=== PATIENT | female | born 1985 | race Caucasian/White ===

== ENCOUNTER → 2017-05-19 | Outpatient (CLI) | payer BC ==
[2017-05-19 18:53] LABS: URINE APPEARANCE CLEAR (CLEAR); URINE BILIRUBIN NEG (NEG); URINE COLOR DK YELLOW; URINE NITRITE NEG (NEG); URINE PH 6.5 (4.5-7.5); URINE SPECIFIC GRAVITY 1.027 (1.000-1.030); UROBILINOGEN POS (NEG)
[2017-05-19 18:57] LABS: MANUAL MICROSCOPIC REQUIRED? NO; REVIEW REQ? NO
== END | disposition home or self-care (01) ==
LOC: C.LABSPEC 17:23
PROVIDERS: ATTEND Obstetrics & Gynecology
DX: O09.299 Supervision of pregnancy with other poor reproductive or obstetric history, unspecified trimester (principal)

== ENCOUNTER → 2017-05-27 | Outpatient (CLI) | payer BC ==
[2017-05-27 17:20] LABS: HEMATOCRIT 38.6 % (37-47); MEAN CELL VOLUME 95.3 fL (80-100); MEAN CORPUSCULAR HEMOGLOBIN 31.9 pg (25-34); MEAN CORPUSCULAR HGB CONC 33.4 g/dl (32-36); MEAN PLATELET VOLUME 9.3 fL (7.4-10.4); PLATELET COUNT 355 K/uL (130-400); RED BLOOD COUNT 4.05 M/uL (4.2-5.4); WHITE BLOOD COUNT 7.84 K/uL (4.8-10.8)
[2017-05-27 18:43] LABS: BASO % 0.1 %; BASO ABS # 0.01 K/uL (0-0.2); COMPLETE YES; EOS % 0.9 %; IG% 0.3 %; LYMPH % 19.4 %; LYMPH ABS # 1.52 K/uL (1.2-3.4); MONO % 10.3 %
== END | disposition home or self-care (01) ==
LOC: C.LAB1850 16:18
PROVIDERS: ATTEND Obstetrics & Gynecology
DX: O09.299 Supervision of pregnancy with other poor reproductive or obstetric history, unspecified trimester (principal); Z3A.00 Weeks of gestation of pregnancy not specified

== ENCOUNTER → 2017-05-27 | Outpatient (CLI) | payer BC ==
[2017-05-29 16:23] LABS: CHLAMYDIA TRACH RNA*** NOT DETECTED (NOT DETECTED); GC (NEIS GONORRHOEAE)RNA** NOT DETECTED (NOT DETECTED)
== END | disposition home or self-care (01) ==
LOC: C.LABSPEC 17:41
PROVIDERS: ATTEND Obstetrics & Gynecology
DX: O09.299 Supervision of pregnancy with other poor reproductive or obstetric history, unspecified trimester (principal); Z3A.00 Weeks of gestation of pregnancy not specified

== ENCOUNTER → 2017-07-21 | Outpatient (CLI) | payer BC ==
[2017-07-23 16:30] LABS: AFP CONCENTRATION 61.2 NG/ML; AFP MULTIPLE OF MEDIAN 1.67; AFPTS GESTATIONAL AGE 15.7 WEEKS; AFPTS INSULIN DEP DIABETIC? NO; AFPTS MATERNAL WT 119 LBS; ALPHA-FETOPROTEIN RACE CAUCASIAN=W; ESTRIOL MULTIPLE OF MEDIAN 0.12; HISTORY OF NTD NO; INHIBIN A 178 PG/ML; REPEAT SAMPLE? NO; hCG MULTIPLE OF MEDIAN 0.75
== END | disposition home or self-care (01) ==
LOC: C.LAB1850 16:07
PROVIDERS: ATTEND Obstetrics & Gynecology
DX: Z34.82 Encounter for supervision of other normal pregnancy, second trimester (principal); Z3A.00 Weeks of gestation of pregnancy not specified

== ENCOUNTER → 2017-08-05 | Outpatient (CLI) | payer BC | END | disposition home or self-care (01) | LOC: C.LAB1850 07:45 | PROVIDERS: ATTEND Obstetrics & Gynecology | DX: Z34.82 Encounter for supervision of other normal pregnancy, second trimester (principal) ==

== ENCOUNTER → 2017-10-20 | Outpatient (CLI) | payer BC ==
[2017-10-20 18:17] LABS: URINE APPEARANCE CLEAR (CLEAR); URINE BILIRUBIN NEG (NEG); URINE COLOR YELLOW; URINE EPITHELIAL CELL AUTO 20-30 /lpf (0-5); URINE NITRITE NEG (NEG); URINE SPECIFIC GRAVITY 1.017 (1.000-1.030); UROBILINOGEN NEG (NEG)
[2017-10-20 18:19] LABS: MANUAL MICROSCOPIC REQUIRED? NO; REVIEW REQ? NO
== END | disposition home or self-care (01) ==
LOC: C.LABSPEC 17:36
PROVIDERS: ATTEND Obstetrics & Gynecology
DX: Z34.83 Encounter for supervision of other normal pregnancy, third trimester (principal); Z3A.00 Weeks of gestation of pregnancy not specified

== ENCOUNTER → 2017-10-28 | Outpatient (CLI) | payer BC | END | disposition home or self-care (01) | LOC: C.LAB1850 09:48 | PROVIDERS: ATTEND Obstetrics & Gynecology | DX: Z34.83 Encounter for supervision of other normal pregnancy, third trimester (principal) ==

== ENCOUNTER → 2017-12-12 | Outpatient (CLI) | payer BC | END | disposition home or self-care (01) | LOC: C.LABSPEC 17:29 | PROVIDERS: ATTEND Obstetrics & Gynecology | DX: Z34.83 Encounter for supervision of other normal pregnancy, third trimester (principal) ==

== ENCOUNTER 2018-01-07 03:33 | Inpatient (IN) | payer BC ==
[~2018-01-07] VITALS: Ht 165.1 cm; Wt 61.2 kg
[2018-01-08] MEDS ORDERED: LACTATED RINGER'S 1000ML 500 ML IV PRN (14:47)
[2018-01-08] MEDS ORDERED: LACTATED RINGER'S 1000ML 1,000 ML IV PRN (14:47)
[2018-01-08] MEDS ORDERED: MISOPROSTOL 25 MCG TAB PV ONE (15:00)
[2018-01-08] MEDS ORDERED: OXYTOCIN 30 UNITS/500ML NSS IV PRN (15:00)
[2018-01-08 15:16] LABS: HEMOGLOBIN 12.5 g/dL (12.0-16.0); MEAN CELL VOLUME 94.7 fL (80-100); MEAN CORPUSCULAR HEMOGLOBIN 32.9 pg (25-34); MEAN CORPUSCULAR HGB CONC 34.7 g/dl (32-36); PLATELET COUNT 158 K/uL (130-400); RED CELL DISTRIBUTION WIDTH CV 12.9 % (11.5-14.5); RED CELL DISTRIBUTION WIDTH SD 44.2 fL (36.4-46.3); WHITE BLOOD COUNT 7.07 K/uL (4.8-10.8)
[2018-01-08] MEDS ORDERED: OMEG10007 PO (15:17)
[2018-01-08] MEDS ORDERED: PRENTAB26 PO (15:17)
[2018-01-08] MEDS ORDERED: PHYT100T (15:17)
[2018-01-08 15:24] LABS: INR 0.9 (0.9-1.1); PTT PATIENT 25.6 SECONDS (21.0-31.0)
[2018-01-08 15:31] VITALS: Ht 165.1 cm; Wt 61.2 kg
[2018-01-08 15:38] LABS: ALBUMIN 2.8 gm/dl (3.4-5.0); CREATININE 0.55 mg/dl (0.60-1.20); TOTAL PROTEIN 6.6 gm/dl (6.4-8.2); URIC ACID 2.9 mg/dl (2.6-7.2)
[2018-01-08] MEDS: LACTATED RINGER'S 1000ML 1,000 ML IV SCH ×2 (15:59→16:59)
[2018-01-09] VITALS (14 sets, daily range): BP systolic 104–139; BP diastolic 67–83; PULSE 65–78; TEMP 36.3–37.2; O2SAT 96–98
[2018-01-09] MEDS: LACTATED RINGER'S 1000ML 1,000 ML IV SCH ×2 (00:09→04:57)
[2018-01-09] MEDS ORDERED: BUPIVACAINE 0.25% 30 ML VIAL ONE (04:14)
[2018-01-09] MEDS ORDERED: FENTANYL 2MCG/ML ROPIV 1.25MG/ML 100ML BAG EPI ONE (04:15)
[2018-01-09] MEDS ORDERED: FENTANYL CITRATE INJ 50 MCG/1 ML 2 ML VIAL ONE ×2 (04:15→09:29)
[2018-01-09] MEDS ORDERED: EpHEDrine SULFATE INJ 50 MG/ML AMP ONE (04:15)
[2018-01-09] MEDS ORDERED: LACTATED RINGER'S 1000ML 500 ML IV PRN (04:59)
[2018-01-09] MEDS ORDERED: NALOXONE HCL INJ 1 MG in SODIUM CHLORIDE 0.9% 1000ML 1,000 ML IV PRN (04:59)
[2018-01-09] MEDS ORDERED: EpHEDrine SULFATE INJ 50 MG/ML AMP IV PRN (05:00)
[2018-01-09] MEDS ORDERED: FENTANYL 2MCG/ML ROPIV 1.25MG/ML 100ML BAG EPI PRN (05:00)
[2018-01-09] MEDS ORDERED: ONDANSETRON INJ 2 MG/ML 2 ML VIAL IV PRN (05:00)
[2018-01-09] MEDS ORDERED: NALOXONE HCL INJ 0.4 MG/1 ML VIAL/CARP IV PRN (05:00)
[2018-01-09] MEDS ORDERED: NALBUPHINE HCL INJ 10 MG/ML AMP IV PRN (05:00)
[2018-01-09] MEDS ORDERED: DiphenhydrAMINE HCL 50 MG/ML VIAL IV PRN (05:00)
[2018-01-09] MEDS ORDERED: CEFAZOLIN IV 2,000 MG in SYRINGE 0 ML IV SCH (06:00)
[2018-01-09] MEDS ORDERED: LACTATED RINGER'S 1000ML 1,000 ML IV SCH (08:23)
[2018-01-09] MEDS ORDERED: CITRIC ACID/SODIUM CITRATE 15 ML UDC PO ONE (08:30)
[2018-01-09] MEDS ORDERED: OXYTOCIN INJ 10 UNITS/ML VIAL ONE ×2 (09:26→10:20)
[2018-01-09] MEDS ORDERED: PHENYLEPHRINE 100MCG/ML 5ML SYR ONE (09:30)
[2018-01-09] MEDS ORDERED: MoRPHine SULFATE PF 1 MG/ML 10 ML AMP/VIAL ONE (09:30)
[2018-01-09] MEDS ORDERED: ONDANSETRON INJ 2 MG/ML 2 ML VIAL ONE (10:16)
[2018-01-09] MEDS ORDERED: DEXAMETHASONE SOD INJ 4 MG/ML VIAL ONE (10:22)
--- NOTE | 2018-01-09 10:51 | Anesthesia Procedure Note ---
Anesthesia Epidural Removal Nt Date & Time Jan 09, 2018 at 10:51 Vital Signs Pain Intensity: 0.0 Notes Mental Status: alert / awake / arousable, participated in evaluation Nausea / Vomiting: adequately controlled Pain: adequately controlled Airway Patency, RR, SpO2: stable & adequate BP & HR: stable & adequate Hydration State: stable & adequate Neuraxial Anesthesia: was administered Anesthetic Complications: no major complications apparent, pt satisfied with anesthetic care Epidural: removed without complications, with tip intact
--- NOTE | 2018-01-09 10:56 | [facility] Post Operative Brief Note ---
Immediate Operative Summary Operative Date Jan 09, 2018. Pre-Operative Diagnosis 1) Nonreassuring heart rate 2) oligohydramnios Post-Operative Diagnosis SAME Procedure(s) Performed Primary low cervical tranverse caesarean section Surgeon Dr. Pennington Dry Cure Worker Surgeon(s) Catie Abernathy, MARIANA Estimated Blood Loss 800 ml Findings See Below (meconium staining of baby and placenta) viable male, Apgars 3,5,& 7. weight 5lbs 9 ozs, gasses pending, Specimens Placenta-exam arterial/venous corg gases cord blood Drains Grey to gravity Anesthesia Type L&D Only EPID Exist Complication(s) none Disposition Accompanied Pt To Recover: yes Disposition: L&D
[2018-01-09] MEDS ORDERED: MoRPHine SULFATE PF 1 MG/ML 10 ML AMP/VIAL EPI PRN (11:00)
[2018-01-09] MEDS ORDERED: SUPERCREAM 0.870 % 15GM JAR EXT PRN (11:00)
[2018-01-09] MEDS ORDERED: NO NARCOTICS OR SEDATIVES SCH (11:00)
[2018-01-09] MEDS ORDERED: CONTINUE MEDICATION ONE (11:00)
[2018-01-09] MEDS ORDERED: BENZOCAINE 20% AER SPR 82.5 GM CAN EXT PRN (11:00)
[2018-01-09] MEDS ORDERED: HYDROCORTISONE ACETATE 25 MG SUPP PR PRN (11:00)
[2018-01-09] MEDS ORDERED: LANOLIN OINT EXT PRN (11:00)
[2018-01-09] MEDS ORDERED: DIPHTHERIA/TETANUS/PERTUSSIS 0.5 ML SYR/VIAL IM. ONE (11:00)
[2018-01-09] MEDS ORDERED: LIDOCAINE/EPINEPHRINE 2% 1:200,000 20 ML SDV ONE (11:27)
--- NOTE | 2018-01-09 12:10 | OPERATIVE REPORT ---
DATE OF OPERATION: 01/09/2018 PREOPERATIVE DIAGNOSES: 1. Term . 2. Oligohydramnios. 3. Nonreassuring heart rate tracing. POSTOPERATIVE DIAGNOSIS: Same. PROCEDURE PERFORMED: Primary low cervical transverse section. SURGEON: Dr. Pennington. ANESTHESIA: Epidural. FINDINGS: Viable male infant with Apgars of 3, 5 and 7 and a weight of 5 pounds 9 ounces. Arterial and venous cord gases are pending. Meconium staining of the baby and the placenta. Normal appearing tubes and ovaries bilaterally. PROCEDURE IN DETAIL: The patient was taken to the operating room and after epidural anesthesia was placed in supine position and draped and prepped in usual fashion. Pfannenstiel type incision was made. Underlying subcutaneous tissue was dissected down to the ventral abdominal fascia, which was nicked and opened in a horizontal manner. Preperitoneal fascia was dissected away until the peritoneal cavity was entered and opened in a vertical manner. Bladder blade was placed. The peritoneum overlying the uterus was elevated, opened in a semi-lunar fashion, the inferior margin of which was taken down creating the bladder flap. The uterus was entered sharply and extended in a semilunar fashion manually. Viable male infant was delivered. Cord was clamped and cut and the baby was passed off to pediatrics who was in attendance for the delivery. Cord gases, cord blood samples obtained. Placenta delivered manually and the uterus was exteriorized. The uterine cavity was wiped clean of any residual blood tissue and/or clot. Uterine incision was then closed with 2 layers of 4-0 Vicryl, the first a running locking stitch, the second an imbricating stitch. Hemostasis was achieved and the uterus was returned to the pelvic cavity. The pericolic gutters were cleared bilaterally of any blood tissue and/or clot. The pelvis was thoroughly irrigated with 1000 mL of warm saline. The uterine incision was inspected for hemostasis again which was present. Sponge and needle count was correct. The rectus muscle was then plicated in the midline with a running 2-0 Vicryl stitch. The fascia was closed laterally with a running 0 Vicryl suture. The subcutaneous tissue was irrigated with warm saline and the skin incision was closed with 4-0 Monocryl subcuticular suture. Sterile dressing was applied. The patient was taken to the recovery room in satisfactory condition. I attest to the content of the Intraoperative Record and any orders documented therein. Any exception s are noted below.
--- NOTE | 2018-01-09 12:42 | Anesthesiology Progress Note ---
Anesthesia Post Op Note Date & Time Jan 09, 2018 at 12:41 Vital Signs Pain Intensity: 0.0 Notes Mental Status: alert / awake / arousable, participated in evaluation Pt Amnestic to Procedure: No Nausea / Vomiting: adequately controlled Pain: adequately controlled Airway Patency, RR, SpO2: stable & adequate BP & HR: stable & adequate Hydration State: stable & adequate Neuraxial Anesthesia: was administered, sensory block is resolving Anesthetic Complications: no major complications apparent pt anesthetic level L3
[2018-01-09] MEDS: KETOROLAC TROMETHAMINE 30 MG/ML VIAL IV. PRN (12:52)
[2018-01-09] MEDS: OXYTOCIN INJ 20 UNITS in LACTATED RINGER'S 1000ML 1,000 ML IV SCH ×2 (13:25→21:21)
[2018-01-10 00:51] VITALS: O2SAT 98
[2018-01-10 02:30] VITALS: O2SAT 97
[2018-01-10] MEDS: KETOROLAC TROMETHAMINE 30 MG/ML VIAL IV. PRN (03:14)
[2018-01-10 04:30] VITALS: O2SAT 94
[2018-01-10] MEDS ORDERED: KETOROLAC TROMETHAMINE 30 MG/ML VIAL IV. PRN (05:30)
[2018-01-10] MEDS ORDERED: DC INTRASPINAL MORPHINE ONE (05:30)
[2018-01-10] MEDS ORDERED: DiphenhydrAMINE HCL 50 MG/ML VIAL IV PRN (05:30)
[2018-01-10] MEDS ORDERED: NURSING VERBAL MED ORDER ONE (05:30)
[2018-01-10] MEDS ORDERED: ONDANSETRON INJ 2 MG/ML 2 ML VIAL IV PRN (05:30)
[2018-01-10] MEDS ORDERED: OXYCODONE/ACETAMINOPHEN 5-325 TAB PO PRN (05:30)
[2018-01-10] MEDS ORDERED: LACTATED RINGER'S 1000ML 500 ML IV ONE (06:45)
[2018-01-10 07:08] LABS: BASO % 0.1 %; BASO ABS # 0.01 K/uL (0-0.2); EOS % 0.6 %; EOS ABS # 0.07 K/uL (0-0.5); HEMATOCRIT 29.9 % (37-47); HEMOGLOBIN 10.4 g/dL (12.0-16.0); IG# 0.03 K/uL (0.00-0.02); LYMPH % 14.9 %; LYMPH ABS # 1.81 K/uL (1.2-3.4); MEAN CELL VOLUME 94.6 fL (80-100); MEAN CORPUSCULAR HEMOGLOBIN 32.9 pg (25-34); MEAN CORPUSCULAR HGB CONC 34.8 g/dl (32-36); MEAN PLATELET VOLUME 9.9 fL (7.4-10.4); MONO % 5.8 %; NEUT % 78.4 %; NEUT ABS # 9.49 K/uL (1.4-6.5); PLATELET COUNT 139 K/uL (130-400); RED CELL DISTRIBUTION WIDTH CV 12.8 % (11.5-14.5); RED CELL DISTRIBUTION WIDTH SD 43.8 fL (36.4-46.3); WHITE BLOOD COUNT 12.11 K/uL (4.8-10.8)
--- NOTE | 2018-01-10 07:18 | Progress Note ---
Subjective Jan 10, 2018. Subjective conversation w/ patient, physical exam Ambulation: ambulating normally Voiding: sanford catheter in place Feeding Type: Breast Feeding Objective Vital Signs Date Time Temp Pulse Resp B/P (MAP) Pulse Ox O2 Delivery O2 Flow Rate FiO2 01/10/18 04:30 18 94 01/10/18 02:30 18 97 01/10/18 00:51 18 98 01/09/18 23:46 18 97 01/09/18 23:44 97 Room Air 01/09/18 23:42 37.2 71 18 104/67 (79) 97 Room Air 01/09/18 23:00 18 96 01/09/18 19:10 37.1 65 16 120/76 (91) 97 Room Air 01/09/18 19:10 16 97 01/09/18 18:10 16 97 01/09/18 17:10 16 96 01/09/18 16:10 97 Room Air 01/09/18 16:10 16 97 01/09/18 16:10 36.9 72 16 127/80 (96) 97 Room Air 01/09/18 15:10 36.8 78 16 116/77 (90) 97 Room Air 01/09/18 15:10 16 97 01/09/18 14:05 36.3 66 16 132/83 (99) 97 Room Air 01/09/18 14:05 16 97 01/09/18 13:35 37.0 68 18 129/81 (97) 97 Room Air 01/09/18 13:17 18 98 01/09/18 13:12 98 Room Air 01/09/18 13:05 37.0 68 18 139/82 (101) 98 Room Air Physical Exam General Appearance: WELL-APPEARING, NO APPARENT DISTRESS Respiratory/Chest: lungs clear Cardiovascular: regular rate, rhythm Fundus: Firm Incision Description: Clean, Dry & Intact (dressing intact) Extremities: no calf tenderness Laboratory Results Last 24 Hours Test 01/10/18 06:38 White Blood Count 12.11 K/uL Red Blood Count 3.16 M/uL Hemoglobin 10.4 g/dL Hematocrit 29.9 % Mean Corpuscular Volume 94.6 fL Mean Corpuscular Hemoglobin 32.9 pg Mean Corpuscular Hemoglobin Concent 34.8 g/dl Platelet Count 139 K/uL Mean Platelet Volume 9.9 fL Neutrophils (%) (Auto) 78.4 % Lymphocytes (%) (Auto) 14.9 % Monocytes (%) (Auto) 5.8 % Eosinophils (%) (Auto) 0.6 % Basophils (%) (Auto) 0.1 % Neutrophils # (Auto) 9.49 K/uL Lymphocytes # (Auto) 1.81 K/uL Monocytes # (Auto) 0.70 K/uL Eosinophils # (Auto) 0.07 K/uL Basophils # (Auto) 0.01 K/uL RDW Standard Deviation 43.8 fL RDW Coefficient of Variation 12.8 % Immature Granulocyte % (Auto) 0.2 % Immature Granulocyte # (Auto) 0.03 K/uL Assessment and Plan Post-Op Day#: 1 Continue Routine Care: - discussed surgery and indication for surgery - begin ambulation - routine post C/S care - doing well
[2018-01-10 07:35] VITALS: BP 107/68; PULSE 81; TEMP 37
[2018-01-10] MEDS: PRENATAL VITAMIN TAB PO SCH (08:19)
[2018-01-10] MEDS: FERROUS SULFATE 325 MG TAB PO SCH (08:19)
[2018-01-10] MEDS: IBUPROFEN 600 MG TAB PO PRN ×3 (08:19→19:13)
[2018-01-10] MEDS: OXYCODONE/ACETAMINOPHEN 5-325 TAB PO PRN ×3 (08:20→19:14)
[2018-01-10 11:15] VITALS: BP 113/68; PULSE 74; TEMP 37.1
[2018-01-10 15:45] VITALS: BP 114/81; PULSE 77; TEMP 36.8
[2018-01-10] MEDS: MAGNESIUM HYDROXIDE SUSP 30 ML UDC PO SCH (22:20)
[2018-01-10] MEDS: SENNA 8.6 MG TAB PO SCH (22:20)
[2018-01-11] MEDS: IBUPROFEN 600 MG TAB PO PRN ×5 (00:19→21:48)
[2018-01-11] MEDS: OXYCODONE/ACETAMINOPHEN 5-325 TAB PO PRN ×5 (00:20→21:48)
[2018-01-11 01:00] VITALS: BP 106/64; PULSE 69; TEMP 36.6; O2SAT 98
[2018-01-11 06:59] LABS: HEMATOCRIT 28.5 % (37-47); HEMOGLOBIN 9.8 g/dL (12.0-16.0)
--- NOTE | 2018-01-11 08:12 | Progress Note ---
Subjective Jan 11, 2018. Subjective conversation w/ patient, physical exam, chart review Ambulation: ambulating normally Voiding: no incontinence Diet Tolerance: Regular Diet Lochia: Small Objective Vital Signs Date Time Temp Pulse Resp B/P (MAP) Pulse Ox O2 Delivery O2 Flow Rate FiO2 01/11/18 01:00 98 Room Air 01/11/18 01:00 36.6 69 18 106/64 (78) 98 Room Air 01/10/18 15:45 36.8 77 18 114/81 (92) Room Air 01/10/18 15:45 Room Air 01/10/18 11:15 37.1 74 18 113/68 (83) Room Air Physical Exam General Appearance: WELL-APPEARING Abdomen: non tender Fundus: Firm Incision Description: Clean, Dry & Intact Extremities: no calf tenderness Laboratory Results Last 24 Hours Test 01/11/18 06:22 Hemoglobin 9.8 g/dL Hematocrit 28.5 % Assessment and Plan Post-Op Day#: 2 Continue Routine Care: Ambulating well tolerating by mouth pain medications may wish discharged later today
[2018-01-11] MEDS ORDERED: OXYC-57 PO (08:13)
[2018-01-11] MEDS ORDERED: MTR600X PO (08:13)
--- NOTE | 2018-01-11 08:14 | Discharge Instructions ---
Discharge Instructions Date of Service Jan 11, 2018. Admission Reason for Admission: IUP Discharge Discharge Diagnosis / Problem: c/s Discharge Goals Goal(s): Routine recovery after Activity Recommendations Activity Limitations: per Instructions/Follow-up section . Instructions / Follow-Up Instructions / Follow-Up ACTIVITY RECOMMENDATIONS: * Gradual return to full activity over the next 2-3 weeks. * No lifting - nothing heavier than baby over the next 2-3 weeks. * Do not engage in vigorous exercise, sexual activity or sports until cleared by your physician. * Do not drive or operate any motorized equipment until cleared by your physician. * You may shower/bathe daily. MEDICATIONS: For discomfort or pain, you may use Acetaminophen (Tylenol), Ibuprofen (Advil), or Naproxen (Aleve) following the package directions. For constipation you may use Colace following the package directions. BREAST CARE: If you are not breast feeding: * Wear a supportive bra 24 hours a day for one to two weeks. * Avoid stimulating your breasts and nipples as much as possible during the first few weeks after delivery. * When taking a shower, have the warm water hit your back, not breasts. * When your breasts feel full, apply ice packs. Usually three to four times a day helps ease the discomfort. * Take a mild pain medication (Tylenol / Motrin) when you are uncomfortable. If breast feeding: * Use breast milk to lubricate nipples. Lansinoh cream may be used for sore nipples. You do not need to remove cream prior to breast feeding. If using a different brand of cream, check the label for directions regarding removal of cream prior to nursing. * Wear a supportive bra. * If having problems with breasts or breast feeding, call a senior research consultant or your health care provider. SPECIAL CARE INSTRUCTIONS: When you are discharged from the hospital, it is important for you to follow the instructions listed below: * During the first week at home, you should be able to care for yourself and your baby. In addition, the usual light household activities are encouraged. * Limit your activities to the way you feel. Do not try to clean the house or move furniture. Be sensible. * If you actively engage in sports and have done so up until the time of your delivery, you may resume these activities as soon as you feel able. This may take up to one month or even longer. Use good judgment. * Continue to take your vitamins for at least six weeks after the of your baby. * Your diet need not be limited unless you were on a special diet before your delivery. Breast-feeding mothers need around 2500 calories per day and at least 64-80 ounces of fluid per day (8 to 10 glasses). * You should eat foods from the four major food groups. Crash diets or fad diets are to be avoided. Eating lean meats, fresh fruits and vegetables, low-fat dairy products, high fiber foods and a regular exercise program, will help you get back to your pre- weight without putting your health at risk. * Constipation is sometimes a problem after delivery. Take a mild laxative as needed. If breast feeding, Milk of Magnesia is acceptable to use. You may use a suppository or Fleets enema. * A daily shower or tub bath is suggested. Wash incision daily with warm soapy water and pat dry. It doesn't need to be covered unless drainage is present. * A bloody vaginal discharge will usually continue until around four weeks . A small amount of bleeding may continue for as long as six weeks. Vaginal discharge changes from the bright red bleeding after delivery to pink then brownish and finally yellowish-pink before becoming white and disappearing. * Bleeding may increase with activity. Your first period may come in 4-8 weeks. If you are breast feeding, your period may be delayed even longer. * [place] (sex) can begin whenever both you and your partner feel comfortable and do not have any form of genital infection. It is recommended that you wait at least six weeks for internal and external healing to occur. If you have questions, please talk to your health care practitioner. A condom should be used to prevent infection and . * Foreplay, gentle intercourse and lubrication is very important the first several times to prevent pain. A water-based lubricant such as K-Y jelly or Astroglide may be used. * If you have RH negative blood and your baby is RH positive, you will receive RHOGAM by injection prior to discharge. The nurse will give you a card to keep with you that has the date and place that you received RHOGAM after delivery. * During your care, you had a Rubella screen done to check for the presence of rubella antibodies in your blood. If your test was negative, you will receive a Rubella vaccine prior to discharge. This vaccine may cause a fever, soreness at the injection site and flu-like symptoms. If these symptoms persist, notify your health care practitioner. is not advised for one month after a Rubella vaccine. * Verbalizes understanding of car seat law as reviewed with patient nursing. * Car Seat hand-out given and reviewed with patient by nursing. * Shaken baby information reviewed with patient by nursing. Call you doctor if: * Heavy bleeding (saturating several pads an hour) or passing clots the size of your fist. * A fever >101 degrees F (38.3 degrees C) on two occasions four hours apart and /or chills. * Unusual pain in the pelvic or vaginal areas. * Call the doctor for any increased redness, drainage or swelling around the incision and any pain unrelieved by prescribed pain medication. * "Baby Blues" lasting longer than two weeks. If you have any questions or concerns, call your health care practitioner at . FOLLOW UP VISIT: * Please call the office at to schedule a 6 week examination. It is important you keep this appointment. It is important for you to make arrangements for either yearly or twice yearly check-ups thereafter. Current Hospital Diet Patient's current hospital diet: Regular Diet Discharge Diet Recommended Diet: Regular OB Diet Procedures Procedures Performed: Primary low cervical tranverse caesarean section Pending Studies Studies pending at discharge: no Medical Emergencies . Who to Call and When: Medical Emergencies: If at any time you feel your situation is an emergency, please call [phone] immediately. . Non-Emergent Contact Non-Emergency issues call your: Rn Nursery . . "Provider Documentation" section prepared by Jose Junior. .
[2018-01-11 08:45] VITALS: BP 133/87; PULSE 73; TEMP 36.5
[2018-01-11] MEDS: FERROUS SULFATE 325 MG TAB PO SCH (09:11)
[2018-01-11] MEDS: PRENATAL VITAMIN TAB PO SCH (09:11)
[2018-01-11 16:00] VITALS: BP 125/75; PULSE 77; TEMP 36.8; O2SAT 100
[2018-01-11] MEDS: SENNA 8.6 MG TAB PO SCH (21:22)
[2018-01-11] MEDS: MAGNESIUM HYDROXIDE SUSP 30 ML UDC PO SCH (21:22)
[2018-01-11 23:30] VITALS: BP 127/79; PULSE 69; TEMP 36.7; O2SAT 99
--- NOTE | 2018-01-12 06:39 | Progress Note ---
Subjective Jan 12, 2018. Subjective conversation w/ patient, physical exam, chart review Ambulation: ambulating normally Voiding: no incontinence Diet Tolerance: Regular Diet Lochia: Small Feeding Type: Breast Feeding Objective Vital Signs Date Time Temp Pulse Resp B/P (MAP) Pulse Ox O2 Delivery O2 Flow Rate FiO2 01/11/18 23:30 36.7 69 18 127/79 (95) 99 Room Air 01/11/18 23:30 99 Room Air 01/11/18 16:00 36.8 77 16 125/75 (92) 100 Room Air 01/11/18 16:00 100 Room Air 01/11/18 08:45 Room Air 01/11/18 08:45 36.5 73 18 133/87 (102) Room Air Physical Exam General Appearance: WELL-APPEARING Respiratory/Chest: lungs clear Abdomen: non tender Fundus: Firm Incision Description: Clean, Dry & Intact Extremities: no calf tenderness Assessment and Plan Post-Op Day#: 3 Continue Routine Care: Postop day #3 at this stage the patient meets discharge criteria and wishes to go home she has no calf tenderness discharge instructions are reviewed
[2018-01-12] MEDS: PRENATAL VITAMIN TAB PO SCH (07:44)
[2018-01-12] MEDS: IBUPROFEN 600 MG TAB PO PRN (07:44)
[2018-01-12] MEDS: FERROUS SULFATE 325 MG TAB PO SCH (07:44)
[2018-01-12] MEDS: OXYCODONE/ACETAMINOPHEN 5-325 TAB PO PRN (07:45)
[2018-01-12 07:50] VITALS: BP 135/91; PULSE 81; TEMP 36.8; O2SAT 100
[2018-01-12 11:20] VITALS: BP_DIAS 91; PULSE 81; TEMP 36.8
--- NOTE | 2018-01-15 17:56 | DISCHARGE SUMMARY ---
ADMITTING DIAGNOSES: 1. Complicated at 40 weeks gestational age. 2. Oligohydramnios. DISCHARGE DIAGNOSES: 1. Same. 2. Nonreassuring heart rate tracing. PROCEDURES PERFORMED: Primary low cervical transverse section. DISCHARGE MEDICATIONS: 1. Percocet 5/325 1-2 p.o. q. 4-6 hours p.r.n. pain. 2. Motrin 600 mg p.o. q. 6 hours p.r.n. pain. ADMISSION HISTORY: The patient is a 32-year-old 2, para 0 with an EDC of 07 January who presented to labor and delivery on 08 January for evaluation of oligohydramnios. The patient was having a post-date NST CECILIA in the office which showed complete oligo and the patient was sent to labor and delivery for evaluation. Prior to that the patient's course had been remarkable for an abnormal quad screen for trisomy 18. The patient had had a negative panorama as well as a normal ultrasound. Laboratory values for the showed a blood type of O positive, antibody negative, rubella immune, hepatitis B negative. She had an elevated 1-hour Glucola at 16 weeks with normal glucose tolerance test at 16 and 28. She had a negative third trimester beta strep culture. PHYSICAL EXAMINATION: GENERAL: Admission physical showed a gravid female in no acute distress. VITAL SIGNS: Initial blood pressure of 142/94, but then 110/70. HEENT: Unremarkable. NECK: Supple. LUNGS: Clear. HEART: With a regular rhythm and rate. ABDOMEN: Gravid, vertex, positive heart tones, estimated weight of 6-1/2 pounds. PELVIC: Cervix closed, 50% and -2 station. EXTREMITIES: Showed no deep calf tenderness. NEUROLOGIC: Grossly intact. HOSPITAL COURSE: Because of the oligohydramnios and the elevated blood pressure. The patient had preeclamptic labs drawn which all came back within normal limits. The patient's blood pressure was normotensive for the remainder of her time in the hospital. Because of the oligohydramnios at term induction was felt to be prudent. Caring physician started with Cytotec 25 mcg intravaginally. The patient began to develop some uterine irritability but occasional late decelerations with the contractions. Contractions increased in intensity into a tachy systole pattern and at times there were late decelerations with the contractions. Further Cytotec was not felt to be prudent by the physician covering and Pitocin was initiated. Pitocin could only be run for minimal periods of time before the tracing became category 3. In the morning the patient was 1 cm dilated, 80% effaced. Attempted rupture of membranes with scant fluid. Delivering physician assumed care for the patient at this point. Another attempt at starting the Pitocin was initiated and the patient immediately had decelerations with late components giving a nonreassuring heart rate tracing. Given the fact that the patient was remote from delivery with a nonreassuring heart rate tracing and oligohydramnios decision was made to proceed with primary section. The patient was taken to the operating room where she delivered a viable male with Apgars of 3 at 1 minute, 5 at 5 minutes and 7 at 10 minutes and a weight of 5 pounds 9 ounces. Arterial and venous cord gases were drawn. The baby was meconium stained as well as the placenta, there was normal appearing tubes and ovaries bilaterally. Postoperatively, the patient did well. Grey catheter was removed on the first postoperative day. H&H came back at 10.4 and 29.9. The baby did well and had no difficulties after delivery. The patient was discharged home on the third postoperative day with routine discharge instructions and the prescriptions for the medications as listed as above. She will follow up in the office in 2 weeks' time for a postoperative check but as always she has been instructed to call with any questions, problems or difficulties.
== END 2018-01-12 13:00 | disposition home or self-care (01) | DRG 766 ==
LOC: C.LD 01-08 13:50 → C.OBG 01-09 13:22
PROVIDERS: ADMIT Obstetrics & Gynecology; ATTEND Obstetrics & Gynecology
PROC: 10D00Z1 Extraction of Products of Conception, Low, Open Approach (ICD-10-PCS; principal; 2018-01-09 09:08)
DX: O41.03X0 Oligohydramnios, third trimester, not applicable or unspecified (principal); O76 Abnormality in fetal heart rate and rhythm complicating labor and delivery; Z37.0 Single live birth; Z3A.40 40 weeks gestation of pregnancy

== ENCOUNTER 2019-03-29 05:28 | Inpatient (IN) ==
--- NOTE | 2019-03-26 13:29 | History & Physical Report ---
Date of Service March 26, 2019 Assessment & Plan (1) Gestational [-induced] hypertension without significant proteinu odette, third trimester: Plan for repeat section with tubal ligation. Questions answered. Patient signed informed consent in office. Reviewed RBA. She has completed childbearing and understands a risk of post-tubal to be 2-01/1000. History of Present Illness Chief Complaint: Scheduled CS Primary Care Provider: Alexander Montgomery MD 34yo @ 37 12/17 here for scheduled CS due to gHTN. H/o prior section. Also with AMA and desire for tubal ligation. + movement, no vaginal bleeding, no leaking of fluid. Allergies Allergy/AdvReac Type Severity Reaction Status Date / Time No Known Allergies Allergy Unverified 03/25/19 13:40 Home Medications Home Medications Medication Instructions Recorded Confirmed Type omega 3-tyi-glp-fish oil [Fish Oil] 2 cap PO QAM 03/20/19 03/25/19 History vit-iron fum-folic ac 1 tab PO QDD 03/20/19 03/25/19 History [ Vitamin] Patient History Medical History Bleeding PT REPORTS HAD BLOODY SHOW YESTERDAY, EVALUATED FOR AT [facility]/TOLD TO REST...NO BLEEDING SINCE YESTERDAY - RECEIVED INSTRUCTIONS FROM OBGYN TO MONITOR AND WHEN TO NOTIFY DOCTOR High blood pressure BP CHECK AT OBGYN LAST WEEK HIGH...[facility] VISIT History of PREVIOUS LOW FLUID AND HIGH BP AT END OF AND INDUCED No family history of adverse response to anesthesia Seasonal allergies Ulna fracture FX 4 WEEKS AGO/RIGHT ARM/UOC FOLLOW UP TOMORROW 03/26/19 Surgical History H/O section (Resolved) History of sinus surgery (Resolved) Status post dilation and curettage (Resolved) Family History Mother Diabetes Social History Preferred Language: Wolof Communication Ability: Effective Beliefs That Will Affect Care: None marital status: Current Living Situation: Family Feels Safe at Home: Yes Safety Concerns: Feels Safe At This Time Smoking Status: Former smoker Tobacco Type: cigarettes Do You Dip or Chew Tobacco: No Second Hand Exposure: No Tobacco Cessation Education Requested by Patient: No Hx Alcohol Use: Yes Alcohol type: wine Hx Substance Use: No Review of Systems All systems reviewed & are unremarkable except as noted in HPI & below Physical Exam Physical Exam: Gen: AAOx3 NAD CV: RRR L: CTAB Abd: soft, gravid, NTTP Ext: no edema FHT: Cat 1
--- NOTE | 2019-03-26 13:49 | Anesthesiology Consultation ---
Date of Service March 26, 2019 Assessment & Plan (1) Encounter for pre-operative examination: Chart Review Chart Review: Acceptable Risk for Surgery and Patient seen in Pre Admission Testing Teaching & Discussion Instructed NPO after midnight before surgery, except medications with 15 cc of water. Medication instructions provided according to the PAT guidelines. History Surgery Operation Date: 03/29/19 07:30 Proposed Procedures p Section with - Marlin Borrero DO s Bilateral Tubal Ligation - Marlin Borrero DO Height/Weight Height: 5 ft 6 in Weight: 62.9 kg Allergies Allergy/AdvReac Type Severity Reaction Status Date / Time No Known Allergies Allergy Unverified 03/25/19 13:40 Medications Home Medications Medication Instructions Recorded Confirmed Last Taken omega 8-yqy-ltd-fish oil [Fish Oil] 2 cap PO QAM 03/20/19 03/25/19 03/25/19 vit-iron fum-folic ac 1 tab PO QDD 03/20/19 03/25/19 03/24/19 [ Vitamin] Past Medical History Medical History Bleeding VAGINAL BLEEDING 03/24. EVALUATED AT [facility] [place]/TOLD TO REST...NO BLEEDING SINCE - RECEIVED INSTRUCTIONS FROM OBGYN TO MONITOR AND WHEN TO NOTIFY DOCTOR. High blood pressure GESTATIONAL HTN. BP CHECK AT OBGYN LAST WEEK HIGH -- BP 150'S/100'S WHILE UNDER OBSERVATION FOR BLEEDING ON 03/24. PREECLAMPSIA LABS NORMAL. C/S DATE HAS BEEN MOVED UP 2/2 CONCERN FOR THIS. History of PREVIOUS LOW FLUID AND HIGH BP AT END OF AND INDUCED Seasonal allergies CURRENTLY HAS CONGESTION/COUGH Ulna fracture FX 4 WEEKS AGO/RIGHT ARM/UOC FOLLOW UP 03/26/19 FOR CAST REMOVAL Exercise / Class Metabolic Activity II 4-5 Yardwork/Stairs/Walk up hill Past Family History Family History Mother Diabetes Past Surgical History Surgical History H/O section (Resolved) PT WAS INDUCED 2/2 HTN. FAILURE TO PROGRESS. EPIDURAL WAS BOLUSED FOR C/S. History of sinus surgery (Resolved) Status post dilation and curettage (Resolved) Past Anesthesia History No Hx of Anesthesia Complications and No Family Hx of Anesthesia Complications History of PONV No Hx of PONV and No Hx of Motion Sickness Social History Smoking Status: Former smoker tobacco type: cigarettes Do You Dip or Chew Tobacco: No Smoking End Date: QUIT 10 YR AGO Hx Alcohol Use: Yes Alcohol type: wine alcohol intake frequency: other Alcohol Intake Frequency Comment: 4 OZ EVERY 2-3 WEEKS Hx Substance Use: No substance use type: does not use Review of Systems Pt denies any recent chest pain, shortness of breath, palpitations, fever or URI. +cough/congestion currently, denies fever. Physical Exam Vital Signs BP: 136/90 (OB notified -- pt reports diastolic BP was this high at OB office previously) P: 76bpm SPO2: 97% RA T: 98.2 F R: 12 ENMT Mouth: + chipped teeth (rear L molar lower); no dental restorations and no loose teeth Thyromental Distance: < 3.5 Finger Breadths (3) Mallampati Class: II Neck normal visual inspection; neck extension not limited Respiratory normal respiratory effort Auscultation: lungs clear to auscultation bilaterally Cardiovascular Rate/Rhythm: regular rate and regular rhythm Heart Sounds: no murmur Extremities: no edema
--- NOTE | 2019-03-26 13:58 | PAT Medication Instructions ---
Medication Instructions Date of Service March 26, 2019 Home Medications omega 4-sap-grm-fish oil [Fish Oil] 2 cap PO QAM [ Vitamin] 1 tab PO QDD STOP taking 2 weeks before surgery omega 0-dkf-wkf-fish oil [Fish Oil] 2 cap PO QAM If surgery is within 2 weeks, stop taking as soon as possible. Take evening before surgery [ Vitamin] 1 tab PO QDD Other Notes If you have any questions please call us at [phone] or [phone] or [phone] or [phone]
[2019-03-29] MEDS ORDERED: LACTATED RINGER'S 1,000 ML IV SCH ×3 (05:45→09:30)
[2019-03-29] MEDS ORDERED: CEFAZOLIN 2,000 MG in SYRINGE 0 ML IV SCH (06:00)
[2019-03-29] MEDS ORDERED: CITRIC ACID/SODIUM CITRATE 15 ML UDC PO SCH ×2 (06:00)
[2019-03-29 06:08] LABS: Hematocrit (blood only) 36.7 % (37-47); Hemoglobin 12.6 g/dL (12.0-16.0); Mean Corpuscular Volume 93.4 fL (80-100); Mean Platelet Volume 10.7 fL (7.4-10.4); Platelet Count 148 K/uL (130-400); RDW Coefficient of Variation 13.7 % (11.5-14.5); Red Blood Count 3.93 M/uL (4.2-5.4); White Blood Count 6.99 K/uL (4.8-10.8)
[2019-03-29 06:16] LABS: Mean Corpuscular Hgb Conc 34.3 g/dL (32-36)
[2019-03-29 06:37] LABS: Basophils # (auto) 0.01 K/uL (0-0.2); Basophils % (auto) 0.1 %; Eosinophils # (auto) 0.06 K/uL (0-0.5); Eosinophils % (auto) 0.9 %; Immature Granulocytes # (auto) 0.02 K/uL (0.00-0.02); Immature Granulocytes % (auto) 0.3 %; Lymphocytes # (auto) 1.97 K/uL (1.2-3.4); Lymphocytes % (auto) 28.2 %; Monocytes % (auto) 7.2 %; Neutrophils # (auto) 4.43 K/uL (1.4-6.5); Neutrophils % (auto) 63.3 %; RBC Morphology Unremarkable
[2019-03-29] MEDS ORDERED: MoRPHine SULFATE PF 1 MG/ML 10 ML AMP/VIAL ONE (07:31)
[2019-03-29] MEDS ORDERED: fentaNYL citrate 100 MCG/2 ML VIAL ONE (07:31)
--- NOTE | 2019-03-29 07:40 | History & Physical Bridge Note ---
Date of Service March 29, 2019 History & Physical Bridge Note I have examined the patient, reviewed the History & Physical and in the interval since the performance of the History & Physical I have noted the following changes of clinical significance: no changes noted
[2019-03-29] MEDS ORDERED: OXYTOCIN 10 UNITS/ML VIAL ONE ×2 (07:49→08:37)
[2019-03-29] MEDS ORDERED: PHENYLEPHRINE 100MCG/ML 5ML SYR ONE (08:18)
[2019-03-29] MEDS ORDERED: ONDANSETRON INJ 2 MG/ML 2 ML VIAL ONE (08:19)
--- NOTE | 2019-03-29 09:15 | Operative Report ---
Post Operative Report Pre & Post Diagnosis Operation Date: 03/29/19 07:30 Pre-Op Diagnosis: History of Section, DESIRES REPEAT SECTION AND STERILIZATION; GESTATIONAL HTN. Post-Op Diagnosis: SAME PREOP Procedure Operation Date: 03/29/19 07:30 Actual Procedures p Section in L&D; LIVE FEMALE AT 0830(Bilateral) - Marlin Borrero DO s Bilateral Tubal Ligation(Bilateral) - Marlin Borrero DO Surgeon Marlin Borrero DO [employer] Professor Refugio Jackson MD PGY 1 Estimated Blood Loss 600 Findings Consistent with Post-Op Diagnosis Viable female , Apgars 9/10. Weight pending, please see nursery records. Normal appearing uterus, tubes, ovaries. Some small fibroids on anterior aspect of uterus. Specimens Placenta, cord blood, cord gas. Drains sanford, clear yellow Anesthesia Type Spinal Complications none Disposition Accompanied Patient To Recovery: Yes Disposition: L&D Indications 34yo @ 37 2 desire for repeat CS due. Patient has gHTN. H/o prior section. Also with AMA and desire for tubal ligation. Description of Procedure Patient was seen in the preoperative area, informed consent was reviewed, she agreed to proceed with surgery. She previously signed informed consent under no duress in the office. She reiterated that she wanted a tubal ligation to be performed. She was taken to the operating room, spinal anesthesia was administered. She was prepared and draped in the usual sterile fashion in the supine position with a leftward tilt. Timeout was confirmed. She was given Ancef and Bicitra preoperatively. Just superior to her prior incision, a Pfannenstiel skin incision was made with a scalpel. This is carried through to the underlying layer fascia with the Bovie. Fascia was nicked at midline, and incised bilaterally. Abdifatah clamps x2 were used to grasp the superior aspect of the fascial incision, and this was di ssected bluntly and sharply off the underlying rectus abdominis muscles. In a similar fashion, the inferior aspect of the incision was dissected. The rectus abdominis muscles were midline, the bladder blade was inserted. Metzenbaum scissors were used to create a bladder flap. The bladder blade was reinserted. The low transverse uterine incision was made with a new scalpel. Membranes ruptured for clear fluid, and the infant was delivered from the cephalic presentation. Nuchal cord x1 was noted and easily reduced. Mouth and nose were bulb suction, spontaneous cry was heard. The cord was doubly clamped and cut, and the infant was handed off to the waiting pediatrics team. A segment of cord was retained for cord gases. Cord blood was obtained. Placenta was delivered spontaneously intact with three-vessel cord. The uterus was exteriorized, and was cleared of all clots and debris. The uterine incision was reapproximated using 0 Vicryl in a running stitch. A second layer of the same suture was used to imbricate the incision. Excellent hemostasis was achieved with 2 additional [id number] sutures. The posterior uterus was evaluated and found to be normal. The tubal ligation was performed, using a Filshie clip on each fallopian tube. The uterus was returned to the abdomen. Gutters were cleared of all clots and debris. Excellent hemostasis was observed. The fascia was reapproximated using 0 Vicryl in a running stitch. The subcuticular tissue was irrigated, and reapproximated using 2-0 plain gut in a running stitch. The skin was reapproximated using 4-0 Vicryl in a running subcuticular stitch. Steri-Strips and a bandage were applied. The patient and baby tolerated the procedure well. Sponge, instrument, needle counts were correct x2 at the conclusion of the case. I attest to the content of the Intraoperative Record and any orders documented therein. Any exceptions are noted below.
[2019-03-29] MEDS ORDERED: HYDROCORTISONE ACETATE 25 MG SUPP PR PRN (09:16)
[2019-03-29] MEDS ORDERED: SENNA 8.6 MG TAB PO PRN (09:16)
[2019-03-29] MEDS ORDERED: MAGNESIUM HYDROXIDE SUSP 30 ML UDC PO PRN (09:16)
[2019-03-29] MEDS ORDERED: MoRPHine SULFATE PF 1 MG/ML 10 ML AMP/VIAL INT SPINAL ONE (09:16)
[2019-03-29] MEDS ORDERED: NALOXONE HCL 1 MG in SODIUM CHLORIDE 0.9% 1000ML 1,000 ML IV PRN (09:16)
[2019-03-29] MEDS ORDERED: BENZOCAINE 20% AER SPR 82.5 GM CAN EXT PRN (09:16)
[2019-03-29] MEDS ORDERED: NALOXONE HCL 0.4 MG/1 ML VIAL/CARP IV PRN (09:16)
[2019-03-29] MEDS ORDERED: DIPHTHERIA/TETANUS/PERTUSSIS 0.5 ML SYR/VIAL IM ONE (09:16)
[2019-03-29] MEDS ORDERED: NALBUPHINE HCL INJ 10 MG/ML AMP IV PRN (09:16)
[2019-03-29] MEDS ORDERED: DiphenhydrAMINE HCL 50 MG/ML VIAL IV PRN (09:16)
[2019-03-29] MEDS ORDERED: ePHEDrine sulfate 50 MG/ML AMP IV PRN (09:16)
[2019-03-29] MEDS ORDERED: LACTATED RINGER'S 500 ML IV PRN (09:16)
[2019-03-29] MEDS ORDERED: ONDANSETRON INJ 2 MG/ML 2 ML VIAL IV PRN (09:16)
[2019-03-29] MEDS ORDERED: NALOXONE HCL 0.08 MG in SYRINGE 1.8 ML IV PRN (09:16)
[2019-03-29] MEDS ORDERED: HYDROmorphone INJ 0.5 MG/0.5 ML SYR IV PRN (09:16)
[2019-03-29] MEDS ORDERED: SUPERCREAM 0.870% 15 GM JAR EXT PRN (09:16)
[2019-03-29] MEDS ORDERED: SODIUM CHLORIDE 0.9% 1000ML 1,000 ML IV SCH (09:30)
[2019-03-29] MEDS ORDERED: DC INTRASPINAL MORPHINE SCH (09:30)
[2019-03-29] MEDS ORDERED: NO NARCOTICS OR SEDATIVES SCH (09:30)
--- NOTE | 2019-03-29 09:31 | Anesthesiology Progress Note ---
Date of Service March 29, 2019 Anesthesia Post Procedure Vital Signs Vital Signs: Temp Pulse Resp BP Pulse Ox 03/29/19 09:28 65 97 03/29/19 09:27 65 113/59 L 03/29/19 09:23 69 99 03/29/19 09:18 66 97 03/29/19 09:16 68 116/59 L 03/29/19 07:54 66 100 03/29/19 07:49 65 100 03/29/19 07:44 67 100 03/29/19 06:30 18 03/29/19 05:55 64 139/92 03/29/19 05:51 36.9 C 18 03/29/19 05:39 36.9 C 18 Transfer of Care Handoff Completed per policy Notes Mental Status: alert / awake / arousable Patient Amnestic to Procedure: Yes Nausea / Vomiting: adequately controlled Pain: adequately controlled Airway Patency, RR, SpO2: stable & adequate BP & HR: stable & adequate Hydration State: stable & adequate Neuraxial Anesthesia: was administered and sensory block is resolving Anesthetic Complications: no major complications apparent and Pt Satisfied with anesthetic care
[2019-03-29 10:17] LABS: Base Excess Cord Arterial Bld -5.3 mEq/L (-9-1.8); Base Excess Cord Venous Blood -2.6 mEq/L (-7.7-1.9); CO2 Cord Arterial Blood 37 mmHg (39.1-73.5); Cord Venous Blood HCO3 23 mmol/L (18.4-26.8); Cord Venous Blood PCO2 43 mmHg (30.4-57.2); Cord Venous Blood PO2 39 mmHg (14.1-43.3); Cord Venous Blood pH 7.35 (7.20-7.44); HCO3 Cord Arterial Blood 20 mmol/L (19.7-28.5); pH Cord Arterial Blood 7.34 (7.1-7.38)
[2019-03-29] MEDS: OXYTOCIN 20 UNITS in LACTATED RINGER'S 1,000 ML IV SCH ×2 (11:35→21:03)
[2019-03-29] MEDS: KETOROLAC 30 MG/ML VIAL IV PRN ×2 (12:39→18:19)
[2019-03-29] MEDS: SIMETHICONE 80 MG CHEW PO SCH ×3 (12:41→21:07)
[2019-03-29] MEDS: DOCUSATE SODIUM 100 MG CAP PO SCH (21:03)
[2019-03-30] MEDS: KETOROLAC 30 MG/ML VIAL IV PRN (03:15)
[2019-03-30] MEDS ORDERED: PROMETHAZINE HCL 25 MG in SODIUM CHLORIDE 0.9% 50 ML IV PRN (03:17)
[2019-03-30] MEDS ORDERED: ONDANSETRON INJ 2 MG/ML 2 ML VIAL IV PRN (03:17)
[2019-03-30] MEDS ORDERED: DiphenhydrAMINE HCL 50 MG/ML VIAL IV PRN (03:17)
[2019-03-30] MEDS ORDERED: KETOROLAC 30 MG/ML VIAL IV PRN (03:17)
--- NOTE | 2019-03-30 07:55 | Obstetrical Progress Note ---
Date of Service <Ellis Jackson MD - Last Filed: 03/30/19 07:55> March 30, 2019 Assessment & Plan <Ellis Jackson MD - Last Filed: 03/30/19 07:55> (1) delivery delivered: 34 year old day 1 status post C/S delivery with tubal ligation at 37 weeks 2 days for maternal HTN Vital Signs Reviewed and WNL Hemoglobin 12.6 Blood type O+, GBS -, Rubella Immune Patient hasn't had chance to ambulate yet, but encouraged trying that out today. Sanford Catheter just placed, has not voided spontaneously yet we will continue to monitor Breast feeding, needed to supplement with formula and some glucose for babies blood sugar Subjective <Ellis Jackson MD - Last Filed: 03/30/19 07:55> Ambulation: limited ambulation (Hasn't ambulated yet) Voiding: sanford catheter in place (Sanford catheter just removed before my exam) Passing Gas:: Yes Diet Tolerance:: regular diet Lochia:: Small Feeding Type:: breast feeding Current Pain Level(1-10): 5 Ms. Arcos endorses some tolerable abdominal pain 5/10 controlled well with toradol. She hasn't been up on her feet yet and her sanford catheter was just pulled. Constitutional: no fever and no chills Respiratory: no cough and no dyspnea Cardiovascular: no chest pain and no dyspnea Gastrointestinal: no nausea and no vomiting Physical Exam <Ellis Jackson MD - Last Filed: 03/30/19 07:55> Vital Signs (Past 24 Hours) Last Vital Signs Temp 36.6 C 03/30/19 04:15 Pulse 81 03/30/19 04:15 Resp 18 03/30/19 04:15 BP 127/70 03/30/19 04:15 Pulse Ox 98 03/30/19 04:15 Constitutional well developed, well nourished, cooperative and comfortable; no acute distress Respiratory normal respiratory effort, lungs clear to auscultation Cardiovascular Rate/Rhythm: regular rate and regular rhythm Heart Sounds: no click, no gallop, no murmur and no cardiac rub Extremities: no calf tenderness Gastrointestinal (Abdomen) Percussion/Palpation: abdomen soft; abdomen nontender Genitourinary OB Exam Abdomen: + fundal height Fundus: + firm, + tender (Mildly) and + relation to umbilicus (1 cm below umbilicus) <Marlin Borrero DO - Last Filed: 03/30/19 07:57> Co-Signing Physician Notes Resident Physician Supervision Note: I was present with Dr. Jackson during the history and exam. I discussed the case with the resident and agree with the findings and plan as documented in the note. Any exceptions or clarifications are listed here: POD#1 doing well. Sanford is now out, will ambulate today. Continue routine postop recovery. Documented By: Marlin Borrero DO Resident Activity Tracking <Ellis Jackson MD - Last Filed: 03/30/19 07:55> Resident Involvement: Resident Care Provided Care Provided: OB Delivery
[2019-03-30] MEDS: IBUPROFEN 600 MG TAB PO PRN ×4 (08:19→23:55)
[2019-03-30] MEDS: OXYCODONE/ACETAMINOPHEN 5mg/325mg TAB PO PRN ×4 (08:19→23:55)
[2019-03-30 08:29] LABS: Basophils # (auto) 0.01 K/uL (0-0.2); Basophils % (auto) 0.1 %; Eosinophils # (auto) 0.07 K/uL (0-0.5); Eosinophils % (auto) 0.8 %; Hematocrit (blood only) 32.9 % (37-47); Hemoglobin 11.6 g/dL (12.0-16.0); Immature Granulocytes # (auto) 0.01 K/uL (0.00-0.02); Immature Granulocytes % (auto) 0.1 %; Lymphocytes # (auto) 1.66 K/uL (1.2-3.4); Lymphocytes % (auto) 18.8 %; Mean Corpuscular Hgb Conc 35.3 g/dL (32-36); Mean Corpuscular Volume 93.2 fL (80-100); Mean Platelet Volume 10.2 fL (7.4-10.4); Monocytes # (auto) 0.57 K/uL (0.11-0.59); Monocytes % (auto) 6.4 %; Neutrophils # (auto) 6.52 K/uL (1.4-6.5); Neutrophils % (auto) 73.8 %; Platelet Count 137 K/uL (130-400); RDW Coefficient of Variation 13.9 % (11.5-14.5); RDW Standard Deviation 47.2 fL (36.4-46.3); Red Blood Count 3.53 M/uL (4.2-5.4); White Blood Count 8.84 K/uL (4.8-10.8)
--- NOTE | 2019-03-30 08:42 | Anesthesiology Progress Note ---
Date of Service March 30, 2019 Anesthesia Post Procedure Vital Signs Vital Signs: Temp Pulse Pulse Resp BP BP Pulse Ox 03/30/19 08:00 37 C 85 20 117/82 98 03/30/19 04:15 36.6 C 81 18 127/70 98 03/30/19 03:40 18 98 03/30/19 02:40 18 98 03/30/19 01:40 18 98 03/30/19 00:45 16 97 03/29/19 23:40 36.9 C 75 18 124/78 98 03/29/19 23:00 20 97 03/29/19 22:00 18 97 03/29/19 21:15 36.9 C 86 18 133/94 97 03/29/19 21:00 16 98 03/29/19 20:00 18 97 03/29/19 19:00 16 99 03/29/19 18:00 18 98 03/29/19 17:45 18 97 03/29/19 15:30 36.4 C L 81 18 122/83 96 03/29/19 14:25 15 99 03/29/19 13:25 16 99 03/29/19 12:25 36.5 C 62 16 129/99 99 03/29/19 11:25 36.4 C L 57 L 15 128/93 99 03/29/19 11:18 72 97 03/29/19 11:17 63 143/86 H 03/29/19 11:15 36.4 C L 16 97 03/29/19 11:13 60 98 03/29/19 11:08 66 98 03/29/19 11:03 65 98 03/29/19 10:58 69 98 03/29/19 10:53 75 98 03/29/19 10:48 63 118/82 98 03/29/19 10:45 16 03/29/19 10:43 68 98 03/29/19 10:38 73 97 03/29/19 10:33 62 97 03/29/19 10:28 65 97 03/29/19 10:26 63 158/97 H 03/29/19 10:23 64 97 03/29/19 10:18 64 97 03/29/19 10:17 69 114/93 03/29/19 10:15 16 03/29/19 10:13 66 97 03/29/19 10:08 67 97 03/29/19 10:07 63 153/94 H 03/29/19 10:05 16 03/29/19 10:03 63 97 03/29/19 09:58 73 98 03/29/19 09:57 75 130/94 03/29/19 09:55 15 03/29/19 09:53 67 98 03/29/19 09:49 78 110/64 03/29/19 09:48 63 98 03/29/19 09:45 16 03/29/19 09:43 71 97 03/29/19 09:38 60 138/85 96 03/29/19 09:35 18 03/29/19 09:33 62 98 03/29/19 09:28 65 97 03/29/19 09:27 65 113/59 L 03/29/19 09:25 18 03/29/19 09:23 69 99 03/29/19 09:18 66 97 03/29/19 09:16 68 116/59 L 03/29/19 09:15 36.5 C 16 Transfer of Care Handoff Completed per policy Notes Mental Status: alert / awake / arousable Patient Amnestic to Procedure: Yes Nausea / Vomiting: adequately controlled Pain: adequately controlled Airway Patency, RR, SpO2: stable & adequate BP & HR: stable & adequate Hydration State: stable & adequate Anesthetic Complications: no major complications apparent and Pt Satisfied with anesthetic care
[2019-03-30] MEDS: PRENATAL VITAMIN 1 TAB PO SCH (09:14)
[2019-03-30] MEDS: FERROUS SULFATE 325 MG TAB PO SCH (09:14)
[2019-03-30] MEDS: DOCUSATE SODIUM 100 MG CAP PO SCH ×2 (09:14→20:16)
[2019-03-30] MEDS: SIMETHICONE 80 MG CHEW PO SCH ×4 (09:16→20:16)
[2019-03-30] MEDS ORDERED: BISACODYL 5 MG TABEC PO SCH (20:00)
[2019-03-31 06:30] LABS: Hematocrit (blood only) 32.6 % (37-47)
--- NOTE | 2019-03-31 07:13 | Obstetrical Progress Note ---
Date of Service <Ellis Jackson MD - Last Filed: 03/31/19 07:13> March 31, 2019 Assessment & Plan <Ellis Jackson MD - Last Filed: 03/31/19 07:13> (1) delivery delivered: 34 year old day 2 status post C/S delivery with tubal ligation at 37 weeks 2 days for maternal HTN Vital Signs Reviewed and WNL Hemoglobin 12.6 Blood type O+, GBS -, Rubella Immune Patient up and ambulating well, using bathroom without difficulty Breast feeding, needed to supplement with formula as well Encouraged continued ambulation and breast feeding Subjective <Ellis Jackson MD - Last Filed: 03/31/19 07:13> Ambulation: ambulating normally Voiding: no voiding problems Passing Gas:: Yes Diet Tolerance:: regular diet Lochia:: Small Feeding Type:: breast feeding Current Pain Level(1-10): 4 Ms. Arcos doing well this morning, no issues currently Constitutional: no fever and no chills Respiratory: no cough and no dyspnea Cardiovascular: no chest pain, no dyspnea and no calf pain Gastrointestinal: + abdominal pain (incisional); no nausea and no vomiting Physical Exam <Ellis Jackson MD - Last Filed: 03/31/19 07:13> Vital Signs (Past 24 Hours) Last Vital Signs Temp 36.6 C 03/30/19 23:35 Pulse 73 03/30/19 23:35 Resp 18 03/30/19 23:35 BP 124/81 03/31/19 03:10 Pulse Ox 98 03/30/19 16:00 Constitutional well developed, well nourished, cooperative and comfortable; no acute distress Respiratory normal respiratory effort, lungs clear to auscultation Cardiovascular Rate/Rhythm: regular rate and regular rhythm Heart Sounds: no click, no gallop, no murmur and no cardiac rub Extremities: no calf tenderness Gastrointestinal (Abdomen) Percussion/Palpation: abdomen soft; abdomen nontender INcision clean dry and intact Genitourinary OB Exam Abdomen: + fundal height Fundus: + firm, + tender (Mildly) and + relation to umbilicus (1 cm below umbilicus) <Isra Pennington Jr, MD, FACOG - Last Filed: 03/31/19 07:45> Co-Signing Physician Notes Resident Physician Supervision Note: I was present with Dr. Jackson during the history and exam. I discussed the case with the resident and agree with the findings and plan as documented in the note. Any exceptions or clarifications are listed here: POD #2, routine care, doing well. Documented By: Isra Pennington Jr, MD, FACOG Resident Activity Tracking <Ellis Jackson MD - Last Filed: 03/31/19 07:13> Resident Involvement: Resident Care Provided Care Provided: OB Delivery
[2019-03-31] MEDS: IBUPROFEN 600 MG TAB PO PRN ×4 (08:01→23:46)
[2019-03-31] MEDS: OXYCODONE/ACETAMINOPHEN 5mg/325mg TAB PO PRN ×4 (08:01→23:45)
[2019-03-31] MEDS: PRENATAL VITAMIN 1 TAB PO SCH (08:03)
[2019-03-31] MEDS: FERROUS SULFATE 325 MG TAB PO SCH (08:03)
[2019-03-31] MEDS: SIMETHICONE 80 MG CHEW PO SCH ×4 (08:05→20:21)
[2019-03-31] MEDS: DOCUSATE SODIUM 100 MG CAP PO SCH ×2 (08:08→20:21)
[2019-03-31] MEDS ORDERED: BISACODYL 10 MG SUPP PR PRN (09:17)
--- NOTE | 2019-04-01 07:06 | Obstetrical Progress Note ---
Date of Service <Ellis Jackson MD - Last Filed: 04/01/19 07:06> April 01, 2019 Assessment & Plan <Ellis Jackson MD - Last Filed: 04/01/19 07:06> (1) delivery delivered: 34 year old day 3 status post C/S delivery with tubal ligation at 37 weeks 2 days for maternal HTN Vital Signs Reviewed and WNL Hemoglobin 12.6 Blood type O+, GBS -, Rubella Immune Patient up and ambulating well, using bathroom without difficulty Breast feeding, needed to supplement with formula as well for now Encouraged continued ambulation and breast feeding Went over all discharge instructions with patient Subjective <Ellis Jackson MD - Last Filed: 04/01/19 07:06> Ambulation: ambulating normally Voiding: no voiding problems Passing Gas:: Yes Diet Tolerance:: regular diet Lochia:: Small Feeding Type:: breast feeding Current Pain Level(1-10): 5 Nia rAcos still endorsing abdominal pain at the incision that she rates at 4 or 5. It is not affecting her greatly at this time and she has been ambulating well and using restroom without difficulty. Constitutional: no fever and no chills Respiratory: no cough and no dyspnea Cardiovascular: no chest pain, no dyspnea and no syncope Gastrointestinal: + abdominal pain (incisional); no nausea and no vomiting Physical Exam <Ellis Jackson MD - Last Filed: 04/01/19 07:06> Vital Signs (Past 24 Hours) Last Vital Signs Temp 36.7 C 03/31/19 23:20 Pulse 82 03/31/19 23:20 Resp 18 03/31/19 23:20 BP 127/82 03/31/19 23:20 Pulse Ox 99 03/31/19 09:00 Constitutional well developed, well nourished, cooperative and comfortable; no acute distress Respiratory normal respiratory effort, lungs clear to auscultation Cardiovascular Rate/Rhythm: regular rate and regular rhythm Heart Sounds: no click, no gallop, no murmur and no cardiac rub Extremities: no calf tenderness Gastrointestinal (Abdomen) Percussion/Palpation: abdomen soft; abdomen nontender Genitourinary OB Exam Abdomen: + fundal height Fundus: + firm, + tender (Mildly) and + relation to umbilicus (1 cm below umbilicus) <Deepthi M. Conley, MD, FACOG - Last Filed: 04/01/19 08:17> Co-Signing Physician Notes Resident Physician Supervision Note: I interviewed and examined the patient. Discussed with Dr. Mora and agree with findings and plan as documented in the note. Any exceptions or clarifications are listed here: doing well, ready for d/c home, uterine fundus firm and appropriately tender. incision c/d/i with steris, instructions reviewed. f/u 6 wk pp check. bps ok this am Documented By: Deepthi Conley MD, FACOG Resident Activity Tracking <Ellis Jackson MD - Last Filed: 04/01/19 07:06> Resident Involvement: Resident Care Provided Care Provided: OB Delivery
[2019-04-01 07:33] VITALS: BP 126/75; PULSE 83; TEMP 98.4; O2SAT 98
[2019-04-01] MEDS: OXYCODONE/ACETAMINOPHEN 5mg/325mg TAB PO PRN ×2 (08:27→12:57)
[2019-04-01] MEDS: PRENATAL VITAMIN 1 TAB PO SCH (08:28)
[2019-04-01] MEDS: DOCUSATE SODIUM 100 MG CAP PO SCH (08:28)
[2019-04-01] MEDS: IBUPROFEN 600 MG TAB PO PRN ×2 (08:28→12:56)
[2019-04-01] MEDS: SIMETHICONE 80 MG CHEW PO SCH ×2 (08:28→12:56)
[2019-04-01] MEDS: FERROUS SULFATE 325 MG TAB PO SCH (08:28)
--- NOTE | 2019-04-19 09:15 | Discharge Summary ---
Date of Service April 19, 2019 Admission HPI Per Admitting Provider 34yo @ 37 12/17 here for scheduled CS due to gHTN. H/o prior section. Also with AMA and desire for tubal ligation. + movement, no vaginal bleeding, no leaking of fluid. Discharge Data Procedures Performed Operation Date: 03/29/19 07:30 Actual Procedures p Section in L&D; LIVE FEMALE AT 0830(Bilateral) - Marlin Borrero DO s Bilateral Tubal Ligation(Bilateral) - Marlin Borrero DO Hospital Course (1) delivery delivered: Admitted after scheduled repeat section with tubal ligation. Please see op note for details. Discharged home POD3. Please see patient info for details of discharge. Followup office 6w.
== END 2019-04-01 16:45 | disposition home or self-care (01) | DRG 785 ==
LOC: 4S1 05:28 → EDSTATUS 07:30 → 4S2 11:55
PROC: M.PPTLD (2019-03-29 07:30)
DX: Z30.2 Encounter for sterilization; Z3A.37 37 weeks gestation of pregnancy; Z37.0 Single live birth; O69.81X0 Labor and delivery complicated by cord around neck, without compression, not applicable or unspecified; O34.211 Maternal care for low transverse scar from previous cesarean delivery; O13.4 Gestational [pregnancy-induced] hypertension without significant proteinuria, complicating childbirth